=== PATIENT | male | born 1995 | race Caucasian/White ===

== ENCOUNTER 2018-02-28 15:05 | Emergency (ER) | payer BC ==
--- NOTE | 2018-02-28 15:51 | RAD ---
CHEST ONE VIEW: History: Pneumothorax. Comparison: 02-25-18 FINDINGS: Exam is such that only the upper lobes are evaluated, not the lung bases. The left sided pneumothorax is at the level of the posterior left fifth rib. This is similar given differences in technique. IMPRESSION: Similar left sided pneumothorax. POS: [facility]
[2018-02-28] MEDS ORDERED: HYDROcodone/Acetaminophen 5/325 mg Tablet ONE (17:26)
--- NOTE | 2018-02-28 18:01 | RAD ---
CHEST ONE VIEW: 02/28/18 HISTORY: Pneumothorax. Chest tube placement. COMPARISON: Earlier exam on the same date. FINDINGS: Small caliber left thoracostomy tube now overlies the lateral aspect of the left apex. There has been near complete evacuation of the left pneumothorax. Small left apical pneumothorax remains. Other findings are stable. IMPRESSION: Left thoracostomy tube in good position with near complete evacuation of the left pneumothorax. POS: [facility]
--- NOTE | 2018-02-28 21:16 | OP ---
PREOPERATIVE DIAGNOSIS: Left pneumothorax, spontaneous. PROCEDURE: Insertion of pneumothorax catheter connected to a Heimlich valve. PROCEDURE IN DETAIL: After prepping and draping, 1% lidocaine was used to infiltrate the skin over t he third rib and then into the intercostal space and the pleural space. Following this, the knife us ed to make a small raman and the catheter was then introduced with its needle, advanced into the chest until air returned and then the catheter was advanced. It was then secured to the Heimlich valve wi th air expulsion being present. Patient tolerated the procedure well and chest x-ray is pending.
--- NOTE | 2018-03-01 02:13 | CON ---
DATE OF CONSULTATION: 02/28/2018 HISTORY OF PRESENT ILLNESS: This is a 22-year-old gentleman, seen in the emergency room about 3 days ago with pleuritic left chest pain and found to have a pneumothorax; however, he left prior to treatment. He returns today due to continued pleuritic pain with no dyspnea. He has a smoking history. He has no history of prior pneumothorax; however, has had prior history of pleuritic chest pain, may have been associated with a small undetected pneumothorax. PAST MEDICAL HISTORY: Otherwise, negative for any medical problems. He takes no medicines and has no allergies. PAST SURGICAL HISTORY: Includes tonsillectomy and some sort of lacrimal duct repair. SOCIAL HISTORY: The patient does smoke. 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 PHYSICAL EXAMINATION: GENERAL: He is an alert and cooperative gentleman, in no distress, appearing his stated age. LUNGS: Breath sounds bilaterally. CARDIAC: No murmurs. ABDOMEN: Soft, nontender. General body habitus asthenic. Plan at this time is for a Heimlich valve as an initial approach and if lung does not at least partially reexpand, we will place him in the hospital for observation on Pleur-evac suction. I have discussed this with the patient and informed consent has been obtained. ATUL
--- NOTE | 2018-03-01 13:46 | EKG ---
Test Reason : ER INDICATION Blood Pressure : / mmHG Vent. Rate : 051 BPM Atrial Rate : 051 BPM P-R Int : 152 ms QRS Dur : 092 ms QT Int : 394 ms P-R-T Axes : 065 093 061 degrees QTc Int : 363 ms Sinus bradycardia with sinus arrhythmia Rightward axis Borderline ECG Confirmed by MELQUIADES WALLER, MARY ([id number]), editor greeting card SHANTE ROGERS ([id number]) on 03/01/2018 1:45:46 PM Referred By: Confirmed By:MARY ARNETT MD
== END 2018-02-28 16:14 | disposition home or self-care (01) ==
LOC: ERS 15:05
DX: J93.9 Pneumothorax, unspecified (principal)
CPT/HCPCS: 71045; 93005; 94760

== ENCOUNTER 2018-03-07 12:56 | Outpatient (CLI) | payer BC ==
--- NOTE | 2018-03-07 14:04 | RAD ---
TWO VIEWS OF THE CHEST: COMPARISON: 02/28/18. HISTORY: Spontaneous tension pneumothorax. FINDINGS: Two views of the chest show a normal-size cardiomediastinal silhouette. A catheter projects over the left upper chest. No obvious pneumothorax is visualized. There is no evidence of consolidation, ma ss, or pleural effusion. IMPRESSION: Evacuation of previously seen pneumothorax. POS: [facility]
== END 2018-03-07 12:57 | disposition home or self-care (01) ==
LOC: RAD 12:56
PROVIDERS: ATTEND Thoracic Surgery (Cardiothoracic Vascular Surgery)
DX: J93.0 Spontaneous tension pneumothorax (principal)
CPT/HCPCS: 71046

== ENCOUNTER 2018-03-16 08:09 | Outpatient (CLI) | payer BC ==
--- NOTE | 2018-03-16 09:23 | RAD ---
CHEST 2 VIEWS: HISTORY: Dyspnea. COMPARISON: Chest radiograph 03/07/18. FINDINGS: Lungs are hyperinflated suggesting obstructive pulmonary disease. No acute osseous abnormality. Cardiac silhouette and mediastinal contours are similar. There is pleural thickening of both lung ap ices. IMPRESSION: No acute intrathoracic abnormality. POS: [facility]
== END 2018-03-16 08:10 | disposition home or self-care (01) ==
LOC: RAD 08:09
PROVIDERS: ATTEND Internal Medicine Critical Care Medicine
DX: R06.00 Dyspnea, unspecified (principal)
CPT/HCPCS: 71046